=== PATIENT | male | born 1960 | race American Indian/Alaskan Native ===

== ENCOUNTER 2016-09-01 21:04 | Emergency (ER) | payer SELFPAY ==
[2016-09-01 22:19] LABS: Basophils % (Auto) 0.4 % (0.0-1.8); Eosinophils % (Auto) 0.2 % (0.0-4.3); Hematocrit 45.4 % (35.5-45.6); Hemoglobin 14.9 gm/dl (11.8-15.2); Mean Corpuscular HGB Conc 33 % (32-34); Mean Corpuscular Volume 78 fl (84-94); Platelet Count 273 K/mm3 (140-440); Red Blood Count 5.82 M/mm3 (3.65-5.03); Red Cell Distribution Width 13.2 % (13.2-15.2)
[2016-09-01 22:23] LABS: Mean Corpuscular Hemoglobin 26 pg (28-32)
[2016-09-01 22:28] LABS: BUN/Creatinine Ratio 6.66; Blood Urea Nitrogen 6 mg/dL (9-20); Calcium 9.2 mg/dL (8.4-10.2); Carbon Dioxide 28 mmol/L (22-30); Chloride 97.7 mmol/L (98-107); Glucose 112 mg/dL (75-100); Potassium 3.2 mmol/L (3.6-5.0); Sodium 141 mmol/L (137-145)
[2016-09-01 22:36] LABS: Anion Gap 19 mmol/L
[2016-09-02 03:19] VITALS: BP 162/97
== END 2016-09-02 03:30 | disposition left against medical advice (07) ==
LOC: ED 21:04
DX: R42 Dizziness and giddiness (principal); R51 Headache; E78.00 Pure hypercholesterolemia, unspecified; Z53.21 Procedure and treatment not carried out due to patient leaving prior to being seen by health care provider
CPT/HCPCS: 36415; 80048; 84484; 85025; 93005; 93010

== ENCOUNTER 2016-09-03 13:25 | Emergency (ER) | payer SELFPAY ==
--- NOTE | 2016-09-03 15:08 | Emergency Department Report ---
Chief Complaint: Dizziness Stated Complaint: DIZZINESS Time Seen by Provider: 09/03/16 15:02 - HPI History of Present Illness: 55-year-old male comes in for dizziness since Friday patient reports when he bent his head down and looks like it feels like the room is spinning. He tried to go see his provider but was not able to. He denies any nausea vomiting no fever no chills nothing else. - Exam Vital Signs: Vital Signs 09/03/16 13:50 Temperature 98.8 F Pulse Rate 79 Respiratory 16 Rate Blood Pressure 146/92 O2 Sat by Pulse 96 Oximetry Physical Exam: She is alert and oriented 3 neuro: Protrusion of tongue deviation to the left and right are intact EOMI intact strengths symmetrical, there is no pronator drift Romberg intact shrug the shoulder is intact MSE screening note: Focused history and physical exam performed. Due to findings the following was ordered: CBC BMP patient be followed in the main emergency room. ED Disposition for MSE Condition: Stable
[2016-09-03 15:57] LABS: Hematocrit 45.9 % (35.5-45.6); Mean Corpuscular HGB Conc 33 % (32-34); Mean Corpuscular Volume 79 fl (84-94); Platelet Count 277 K/mm3 (140-440); Red Blood Count 5.82 M/mm3 (3.65-5.03); White Blood Count 5.5 K/mm3 (4.5-11.0)
[2016-09-03 16:07] LABS: Mean Corpuscular Hemoglobin 26 pg (28-32)
[2016-09-03 16:11] LABS: Anion Gap 17 mmol/L; BUN/Creatinine Ratio 8.75; Blood Urea Nitrogen 7 mg/dL (9-20); Carbon Dioxide 28 mmol/L (22-30); Chloride 101.2 mmol/L (98-107); Glucose 87 mg/dL (75-100); Potassium 3.7 mmol/L (3.6-5.0); Sodium 142 mmol/L (137-145)
[2016-09-03 23:46] VITALS: BP 124/81
--- NOTE | 2016-09-05 17:59 | ED Elopement Review ---
ED Pt Elopement review - Results review Lab results: Laboratory Tests 09/03/16 09/03/16 15:32 15:32 WBC 5.5 RBC 5.82 H Hgb 15.0 Hct 45.9 H MCV 79 L MCH 26 L MCHC 33 RDW 13.0 L Plt Count 277 Sodium 142 Potassium 3.7 Chloride 101.2 Carbon Dioxide 28 Anion Gap 17 BUN 7 L Creatinine 0.8 Estimated GFR > 60 BUN/Creatinine Ratio 8.75 Glucose 87 Calcium 10.0 - Call Back decision Pt Call Back Decision: Pt to F/U with PMD
== END 2016-09-04 01:20 | disposition left against medical advice (07) ==
LOC: ED 13:25
DX: R42 Dizziness and giddiness (principal); Z53.21 Procedure and treatment not carried out due to patient leaving prior to being seen by health care provider
CPT/HCPCS: 36415; 80048; 85027

== ENCOUNTER 2022-04-25 10:34 | Emergency (ER) | payer SELFPAY ==
[2022-04-25 10:50] VITALS: BP 138/84
== END 2022-04-25 15:20 | disposition left against medical advice (07) ==
LOC: ED 10:34
DX: M54.9 Dorsalgia, unspecified (principal); R10.9 Unspecified abdominal pain; Z53.21 Procedure and treatment not carried out due to patient leaving prior to being seen by health care provider